=== PATIENT | female | born 1955 | race Caucasian/White ===

== ENCOUNTER → 2018-02-09 | Outpatient (CLI) | payer BC ==
[~2018-02-09] VITALS: Ht 157.5 cm; Wt 55.3 kg
[~2018-02-09] MED LIST: Ambien PO; Aspirin PO; BACTRIM,SEPT1 TABLET PO; BENAZEPRIL HCL10 MG PO; CARAFATE1 GM PO; CELEBREX200 MG PO; GUMMI BEAR MUL1 EACH PO; KEFLEX500 MG PO; LIPITOR40 MG PO; METOPROLOL TART25 MG PO; NORCO 5/3251 TABLET PO; OMEPRAZOLE40 M1 PO; Omega III EPA + DHA PO; PERCOCET 10/1 TABLET PO; PRAVASTATIN SOD40 MG PO; PROTONIX40 MG PO; PriLOSEC PO; SUPER B-50 COM1 EACH PO; THERAGRAN1 TABLET PO; VITAMIN D1000 INTUN PO; Vicodin,Lortab 5/500 PO; WELCHOL625 MG PO; ZESTRIL,PRINIVI10 MG PO; [UNRECOGNIZED DRUG - REMARK]
== END | disposition home or self-care (01) ==
LOC: AMB 13:30
DX: K21.0 Gastro-esophageal reflux disease with esophagitis (principal); K44.9 Diaphragmatic hernia without obstruction or gangrene; Z98.84 Bariatric surgery status; I25.10 Atherosclerotic heart disease of native coronary artery without angina pectoris; Z95.5 Presence of coronary angioplasty implant and graft; I10 Essential (primary) hypertension; E78.5 Hyperlipidemia, unspecified; M19.90 Unspecified osteoarthritis, unspecified site; Z90.49 Acquired absence of other specified parts of digestive tract; Z88.8 Allergy status to other drugs, medicaments and biological substances
CPT/HCPCS: 88305; 88312

== ENCOUNTER 2018-03-23 11:02 | Day surgery (SDC) | payer BC ==
[~2018-03-23] VITALS: Ht 157.5 cm; Wt 64.4 kg
[~2018-03-23 11:02] MED LIST changes: +APPLE CIDER VI500 MG PO; +ASPIRIN325 MG PO
[2018-03-23 11:39] VITALS: BP 167/77
[2018-03-23 20:03] VITALS: BP 156/76
[2018-03-23] MEDS ORDERED: REQUIP1 MG PO (20:52)
[2018-03-23] MEDS ORDERED: SEROQUEL12.5 MG PO (20:53)
[2018-03-23] MEDS ORDERED: TIZANIDINE HCL2 M1 PO (20:54)
[2018-03-23 23:40] VITALS: BP 127/63
[2018-03-24 04:37] VITALS: BP 119/62
[2018-03-24 05:57] LABS: HEMOGLOBIN 10.3 G/DL (11.9-15.5); MCH 28.6 PG (29.0-34.0); MCHC 31.2 G/DL (30.0-36.0); MCV 91.7 FL (83-99); PLATELET COUNT 254 K/uL (156-360); RBC DIS.WIDTH-CV 14.5 % (11.8-14.6); RBC DIS.WIDTH-SD 49.1 % (39-53); WHITE BLOOD COUNT 7.7 K/uL (4.1-10.2)
[2018-03-24 06:18] LABS: CHLORIDE 111 MEQ/L (99-109); CREATININE 0.6 MG/DL (0.6-1.3); GFR ESTIMATE (CALCULATED) > 59 mL/min/; GLUCOSE 117 mg/dL (70-99); POTASSIUM 4.1 MEQ/L (3.7-5.4); SODIUM 141 MEQ/L (136-147); UREA NITROGEN (BUN) 16 mg/dL (9-23)
[2018-03-24 08:49] VITALS: BP 166/80
[2018-03-24] MEDS ORDERED: COLACE100 MG PO (09:19)
[2018-03-24] MEDS ORDERED: ONDANSETRON HCL8 MG PO (09:19)
[2018-03-24] MEDS ORDERED: OXYCONTIN15 MG PO (09:19)
[2018-03-24] MEDS ORDERED: PERCOCET 10/1 TABLET PO (09:19)
[2018-03-24 11:35] VITALS: BP 147/67
[2018-03-24 16:08] VITALS: BP 134/67
[2018-03-24 19:49] VITALS: BP 157/86
[2018-03-24 23:34] VITALS: BP 180/95
[2018-03-25] VITALS: BP 145/78
[2018-03-25 03:50] VITALS: BP 123/74
[2018-03-25 04:00] VITALS: BP 132/75
[2018-03-25 08:35] VITALS: BP 178/80
== END 2018-03-25 09:40 | disposition home or self-care (01) ==
LOC: SDC 11:02 → ENRESERV 16:03 → 2SOUTH 16:11 → ENRESERV 17:14 → 2EAST 19:57
PROVIDERS: Surgery
DX: K43.2 Incisional hernia without obstruction or gangrene (principal); Z98.84 Bariatric surgery status; K66.0 Peritoneal adhesions (postprocedural) (postinfection); I10 Essential (primary) hypertension; I25.10 Atherosclerotic heart disease of native coronary artery without angina pectoris; E78.5 Hyperlipidemia, unspecified; I25.2 Old myocardial infarction; Z95.5 Presence of coronary angioplasty implant and graft; Z79.82 Long term (current) use of aspirin; Z87.891 Personal history of nicotine dependence
CPT/HCPCS: 80048; 85027; C1781; G0378; J0131; J0330; J0690; J1170; J1885; J2250; J2405; J2710; J3010; J7643; S0028